=== PATIENT | female | born 1990 | race Caucasian/White ===

== ENCOUNTER → 2020-01-30 | Outpatient (REF) | payer OTHER ==
[2020-01-30 17:41] LABS: HEMATOCRIT 35.3 % (36.0-47.0); HEMOGLOBIN 11.7 g/dl (12.0-15.5); MEAN CORPUSCULAR HEMOGLOBIN 28.6 pg (27.0-33.0); MEAN CORPUSCULAR HGB CONC 33.1 g/dl (32.0-36.5); MEAN CORPUSCULAR VOLUME 86.3 fl (80.0-96.0); PLATELET COUNT, AUTOMATED 233 10^3/uL (150-450); RED BLOOD COUNT 4.09 10^6/uL (4.00-5.40); WHITE BLOOD COUNT 13.1 10^3/uL (4.0-10.0)
== END ==
LOC: M PLALAB 15:22
PROVIDERS: ATTEND Specialist
DX: Z34.83 Encounter for supervision of other normal pregnancy, third trimester (principal)

== ENCOUNTER → 2020-03-09 | Outpatient (REF) | payer OTHER ==
[~2020-03-09] MED LIST: ACET-683 PO; IBUP80TA PO; PEPC1TAB5 PO; PRENTAB9 PO
== END ==
LOC: M SFHCWAGY 16:57
PROVIDERS: ATTEND Specialist
DX: Z34.83 Encounter for supervision of other normal pregnancy, third trimester (principal)
CPT/HCPCS: 87081; G0463

== ENCOUNTER 2020-03-31 13:59 | Inpatient (IN) | payer OTHER ==
[2020-03-31] VITALS (22 sets, daily range): BP systolic 98–143; BP diastolic 53–88
[~2020-03-31] VITALS: Ht 162.6 cm; Wt 86.9 kg
[2020-03-31] MEDS ORDERED: PRENTAB9 PO (14:36)
[2020-03-31] MEDS ORDERED: PEPC1TAB5 PO (14:36)
[2020-03-31] MEDS ORDERED: miSOPROStol 50 MCG 1/2 TAB (S0191) SL SCH (14:45)
[2020-03-31 15:07] LABS: HEMATOCRIT 36.2 % (36.0-47.0); HEMOGLOBIN 11.6 g/dl (12.0-15.5); MEAN CORPUSCULAR HEMOGLOBIN 26.2 pg (27.0-33.0); MEAN CORPUSCULAR VOLUME 81.9 fl (80.0-96.0); PLATELET COUNT, AUTOMATED 215 10^3/uL (150-450); RED BLOOD COUNT 4.42 10^6/uL (4.00-5.40); WHITE BLOOD COUNT 11.4 10^3/uL (4.0-10.0)
[2020-03-31] MEDS ORDERED: OXYTOCIN DRIP 30 UNITS in IV 1 EA IV SCH (15:15)
--- NOTE | 2020-03-31 15:47 | HPE ---
DATE OF ADMISSION: 03/31/2020 A 29-year-old G2, P1 female at 39-2/7 weeks gestation by last menstrual period (LMP) consistent with an 11-week ultrasound, estimated date of confinement (EDC) 04/05/2020, presents for labor induction. She has irregular contractions that are mild. She denies bleeding. COURSE: The patient transferred into [facility] from outside the [facility] on 01/30/2020. The remainder of her care was normal. OBSTETRICAL HISTORY: February 2016, vaginal delivery of an 8-pound 6-ounce male . No complications. MEDICAL HISTORY: 1. Hypothyroidism. 2. Anxiety. SURGICAL HISTORY: Tonsillectomy. ALLERGIES: SULFA. SOCIAL HISTORY: The patient is . She lives at [place]. She denies cigarettes, alcohol, or drug use. FAMILY HISTORY: Noncontributory. PHYSICAL EXAMINATION: Blood pressure 124/74, pulse 84. She is in no apparent distress. HEAD AND NECK: Normal. LUNGS: Clear. HEART: Regular. ABDOMEN: Nontender, gravid. heart tone category 1. Contractions irregular, mild to moderate. Sterile vaginal exam: 4 cm, 80%, -2, posterior, soft, vertex. EXTREMITIES: Nontender. LABORATORY DATA: GBS negative. Blood type O positive. ASSESSMENT: A 29-year-old G2, P1 at 39-2/7 weeks gestation presents for labor induction. PLAN: Patient was admitted on 03/31/2020. Plan Pitocin for labor induction.
[2020-03-31] MEDS: LR 1,000 ML IV SCH (16:28)
[2020-03-31] MEDS ORDERED: FENTANYL 2MCG/ML ROPIVACAINE 0.2% IN 0.9% NACL 100ML IVBAG As Ordered ONE (19:09)
[2020-03-31] MEDS ORDERED: EPIDURAL/PCA KEYS XX PRN (20:45)
[2020-03-31] MEDS ORDERED: REFRIGERATOR IV KEYS XX PRN (20:45)
[2020-03-31] MEDS ORDERED: FENTANYL/ROPIVACAINE/NACL BAG 100 ML EPIDURAL SCH (20:45)
[2020-03-31] MEDS ORDERED: LACTATED RINGER'S 1000 ML IV PRN (20:45)
[2020-03-31] MEDS ORDERED: NALOXONE INJ 0.4MG/1ML VIAL (J2310 PER 1MG) IV PRN (20:45)
[2020-03-31] MEDS ORDERED: diphenhydrAMINE 50MG/ML VIAL (J1200) IV PRN (20:45)
[2020-03-31] MEDS ORDERED: ePHEDrine SULFATE 25 MG/5 ML(5MG/ML) SYRINGE IV PRN (20:45)
[2020-03-31] MEDS ORDERED: EPIDURAL COMMENT XX SCH (20:45)
[2020-03-31] MEDS ORDERED: ONDANSETRON 4MG/2ML VIAL IV PRN (20:45)
[2020-04-01] MEDS: LR 1,000 ML IV SCH (00:13)
[2020-04-01] MEDS ORDERED: DIBUCAINE 1% OINTMENT 30GM TOP PRN (00:30)
[2020-04-01] MEDS ORDERED: RHOGAM 300 MCG (1500 IU) INJ (J2790) IM SCH (00:30)
[2020-04-01] MEDS ORDERED: OXYTOCIN DRIP 30 UNITS in IV 1 EA IV ONE (00:30)
[2020-04-01] MEDS ORDERED: MEASLES,MUMPS,RUBELLA VACCINE INJ (MMR-II) (90707) SC SCH (00:30)
[2020-04-01] MEDS ORDERED: IBUPROFEN 600MG TAB PO PRN (00:30)
[2020-04-01] MEDS ORDERED: METHYLERGONOVINE MALEATE 0.2 MG TAB PO PRN (00:30)
[2020-04-01] MEDS ORDERED: DOCUSATE SODIUM 100 MG CAP PO PRN (00:30)
[2020-04-01] MEDS ORDERED: ONDANSETRON 4MG/2ML VIAL IV PRN (00:30)
[2020-04-01] MEDS ORDERED: ACETAMINOPHEN 500 MG TAB PO PRN (00:30)
[2020-04-01] MEDS ORDERED: ACETAMINOPHEN TAB 650MG DOSE (2X325MG) PO PRN (00:30)
[2020-04-01 01:45] VITALS: BP 112/72
[2020-04-01] MEDS: IBUPROFEN 800 MG TAB PO PRN ×2 (05:40→14:45)
[2020-04-01 06:00] VITALS: BP 119/73
[2020-04-01] MEDS: PRENATAL VITAMINS CHEWABLE TABLET PO SCH (08:37)
[2020-04-01 17:44] VITALS: BP 118/73
[2020-04-02 06:00] VITALS: BP 109/66
[2020-04-02] MEDS: PRENATAL VITAMINS CHEWABLE TABLET PO SCH (08:49)
[2020-04-02] MEDS ORDERED: ACET-683 PO (09:15)
[2020-04-02] MEDS ORDERED: IBUP80TA PO (09:15)
--- NOTE | 2020-04-10 15:54 | DN ---
DATE OF DELIVERY: 03/31/2020 PREDELIVERY DIAGNOSIS: Term , labor induction. POSTDELIVERY DIAGNOSIS: Delivered. PROCEDURE: Spontaneous vaginal delivery. PROPERTY CONTROLLER: Ministerio Gan MD ANESTHESIA: Epidural. ESTIMATED BLOOD LOSS: 300 mL. FINDINGS: 9 pound 15 ounce female infant. scores 8 and 8. DELIVERY SUMMARY: After a 20 minute second stage, the patient had spontaneous delivery of a 9 pound 15 ounce female infant, scores 8 and 8 under epidural anesthesia. There was no nuchal cord. The shoulders delivered with ease. The was handed to the mother. The cord was doubly clamped and cut. The placenta was delivered by manual extraction after 28 minutes. The patient received IV Pitocin after delivery of the placenta. A second-degree perineal laceration was repaired with 2-0 chromic in the usual fashion. Sponge and needle counts were correct.
== END 2020-04-02 11:00 | disposition home or self-care (01) | DRG 807 ==
LOC: M LDI 13:59 → M OBS 04-01 01:26
PROVIDERS: ADMIT Specialist; ATTEND Specialist
PROC: 10E0XZZ Delivery of Products of Conception, External Approach (ICD-10-PCS; principal; 2020-03-31)
PROC: 0KQM0ZZ Repair Perineum Muscle, Open Approach (ICD-10-PCS; 2020-03-31)
PROC: 3E033VJ Introduction of Other Hormone into Peripheral Vein, Percutaneous Approach (ICD-10-PCS; 2020-03-31)
DX: O99.284 Endocrine, nutritional and metabolic diseases complicating childbirth (principal); Z37.0 Single live birth; E03.9 Hypothyroidism, unspecified; Z3A.39 39 weeks gestation of pregnancy; O99.344 Other mental disorders complicating childbirth; F41.9 Anxiety disorder, unspecified; O70.1 Second degree perineal laceration during delivery

== ENCOUNTER → 2020-08-07 | Outpatient (CLI) | payer OTHER ==
[2020-08-07 13:27] LABS: BASO # 0.1 10^3/uL (0.0-0.2); BASO % 0.9 % (0.0-1.0); EOS # 0.2 10^3/uL (0.0-0.5); EOS % 2.3 % (0.0-3.0); HEMATOCRIT 40.9 % (36.0-47.0); HEMOGLOBIN 13.3 g/dl (12.0-15.5); LYMPH # 2.5 10^3/uL (1.5-5.0); LYMPH % 38.4 % (24.0-44.0); MEAN CORPUSCULAR HEMOGLOBIN 28.6 pg (27.0-33.0); MEAN CORPUSCULAR HGB CONC 32.5 g/dl (32.0-36.5); MONO # 0.5 10^3/uL (0.0-0.8); MONO % 7.8 % (0.0-5.0); NEUTROPHILS # 3.3 10^3/uL (1.5-8.5); NEUTROPHILS % 50.4 % (36.0-66.0); PLATELET COUNT, AUTOMATED 266 10^3/uL (150-450); RED BLOOD COUNT 4.65 10^6/uL (4.00-5.40); WHITE BLOOD COUNT 6.5 10^3/uL (4.0-10.0)
[2020-08-07 13:59] LABS: ALBUMIN 4.1 GM/DL (3.2-5.2); ALT/SGPT 43 U/L (12-78); BILIRUBIN,TOTAL 0.6 MG/DL (0.2-1.0); BLOOD UREA NITROGEN 13 MG/DL (7-18); CALCIUM LEVEL 9.3 MG/DL (8.5-10.1); CARBON DIOXIDE LEVEL 27 MEQ/L (21-32); CHLORIDE LEVEL 106 MEQ/L (98-107); CREATININE FOR GFR 0.83 MG/DL (0.55-1.30); GLOMERULAR FILTRATION RATE > 60.0 (>60); GLUCOSE, FASTING 75 MG/DL (70-100); POTASSIUM SERUM 4.5 MEQ/L (3.5-5.1); SODIUM LEVEL 140 MEQ/L (136-145); THYROID STIMULATING HORMONE 0.801 uIU/ML (0.358-3.740); TOTAL PROTEIN 7.4 GM/DL (6.4-8.2)
== END ==
LOC: M PLALAB 09:40
PROVIDERS: ATTEND Family Medicine
DX: L65.9 Nonscarring hair loss, unspecified (principal)

== ENCOUNTER → 2021-01-22 | Outpatient (REF) | payer OTHER ==
[2021-01-22 13:05] LABS: HEMATOCRIT 42.4 % (36.0-47.0); HEMOGLOBIN 13.7 g/dl (12.0-15.5); MEAN CORPUSCULAR HEMOGLOBIN 29.3 pg (27.0-33.0); MEAN CORPUSCULAR HGB CONC 32.3 g/dl (32.0-36.5); MEAN CORPUSCULAR VOLUME 90.8 fl (80.0-96.0); PLATELET COUNT, AUTOMATED 285 10^3/uL (150-450); RED BLOOD COUNT 4.67 10^6/uL (4.00-5.40); WHITE BLOOD COUNT 11.3 10^3/uL (4.0-10.0)
[2021-01-22 13:48] LABS: ALT/SGPT 23 U/L (12-78); BILIRUBIN,TOTAL 0.6 MG/DL (0.2-1.0); BLOOD UREA NITROGEN 18 MG/DL (7-18); CALCIUM LEVEL 9.3 MG/DL (8.5-10.1); CARBON DIOXIDE LEVEL 28 MEQ/L (21-32); CHLORIDE LEVEL 105 MEQ/L (98-107); CREATININE FOR GFR 0.59 MG/DL (0.55-1.30); FERRITIN 14 NG/ML (8-252); FREE T4 1.08 NG/DL (0.76-1.46); GLOMERULAR FILTRATION RATE > 60.0 (>60); GLUCOSE, FASTING 93 MG/DL (70-100); POTASSIUM SERUM 4.3 MEQ/L (3.5-5.1); SODIUM LEVEL 137 MEQ/L (136-145); THYROID STIMULATING HORMONE 0.789 uIU/ML (0.358-3.740); TOTAL PROTEIN 7.1 GM/DL (6.4-8.2)
== END ==
LOC: M PLALAB 10:50
PROVIDERS: ATTEND Advanced Practice Midwife
DX: Z01.419 Encounter for gynecological examination (general) (routine) without abnormal findings (principal)

== ENCOUNTER → 2021-04-04 | Outpatient (CLI) | payer OTHER ==
[2021-04-04 17:46] LABS: BASO # 0.1 10^3/uL (0.0-0.2); BASO % 0.8 % (0.0-1.0); EOS # 0.2 10^3/uL (0.0-0.5); EOS % 2.3 % (0.0-3.0); HEMATOCRIT 42.4 % (36.0-47.0); HEMOGLOBIN 13.9 g/dl (12.0-15.5); LYMPH # 4.2 10^3/uL (1.5-5.0); LYMPH % 44.1 % (24.0-44.0); MEAN CORPUSCULAR HEMOGLOBIN 29.7 pg (27.0-33.0); MEAN CORPUSCULAR HGB CONC 32.8 g/dl (32.0-36.5); MEAN CORPUSCULAR VOLUME 90.6 fl (80.0-96.0); MONO # 0.6 10^3/uL (0.0-0.8); MONO % 5.9 % (2.0-8.0); NEUTROPHILS # 4.4 10^3/uL (1.5-8.5); NEUTROPHILS % 46.7 % (36.0-66.0); PLATELET COUNT, AUTOMATED 308 10^3/uL (150-450); RED BLOOD COUNT 4.68 10^6/uL (4.00-5.40); WHITE BLOOD COUNT 9.4 10^3/uL (4.0-10.0)
[2021-04-04 18:01] LABS: ALBUMIN 4.1 GM/DL (3.2-5.2); ALT/SGPT 19 U/L (12-78); BILIRUBIN,TOTAL 0.4 MG/DL (0.2-1.0); BLOOD UREA NITROGEN 13 MG/DL (7-18); CALCIUM LEVEL 9.2 MG/DL (8.5-10.1); CARBON DIOXIDE LEVEL 28 MEQ/L (21-32); CHLORIDE LEVEL 105 MEQ/L (98-107); CREATININE FOR GFR 0.68 MG/DL (0.55-1.30); GLOMERULAR FILTRATION RATE > 60.0 (>60); GLUCOSE, FASTING 92 MG/DL (70-100); POTASSIUM SERUM 4.1 MEQ/L (3.5-5.1); SODIUM LEVEL 139 MEQ/L (136-145); THYROID STIMULATING HORMONE 0.591 uIU/ML (0.358-3.740); TOTAL PROTEIN 7.3 GM/DL (6.4-8.2)
== END ==
LOC: M PLALAB 14:54
PROVIDERS: ATTEND Family Medicine
DX: F41.9 Anxiety disorder, unspecified (principal)

== ENCOUNTER → 2021-11-29 | Outpatient (CLI) | payer OTHER ==
[2021-11-29 15:22] LABS: BASO # 0.1 10^3/uL (0.0-0.2); BASO % 0.9 % (0.0-1.0); EOS # 0.2 10^3/uL (0.0-0.5); EOS % 1.9 % (0.0-3.0); HEMATOCRIT 40.4 % (36.0-47.0); HEMOGLOBIN 13.5 g/dl (12.0-15.5); LYMPH # 3.4 10^3/uL (1.5-5.0); LYMPH % 39.7 % (24.0-44.0); MEAN CORPUSCULAR HEMOGLOBIN 29.3 pg (27.0-33.0); MEAN CORPUSCULAR HGB CONC 33.4 g/dl (32.0-36.5); MEAN CORPUSCULAR VOLUME 87.6 fl (80.0-96.0); MONO # 0.6 10^3/uL (0.0-0.8); MONO % 6.4 % (2.0-8.0); NEUTROPHILS # 4.4 10^3/uL (1.5-8.5); PLATELET COUNT, AUTOMATED 298 10^3/uL (150-450); RED BLOOD COUNT 4.61 10^6/uL (4.00-5.40); WHITE BLOOD COUNT 8.6 10^3/uL (4.0-10.0)
[2021-11-29 16:00] LABS: BLOOD UREA NITROGEN 15 MG/DL (7-18); CALCIUM LEVEL 9.6 MG/DL (8.5-10.1); CARBON DIOXIDE LEVEL 29 MEQ/L (21-32); CHLORIDE LEVEL 107 MEQ/L (98-107); CREATININE FOR GFR 0.77 MG/DL (0.55-1.30); FREE T4 1.12 NG/DL (0.76-1.46); GLOMERULAR FILTRATION RATE > 60.0 (>60); GLUCOSE, FASTING 102 MG/DL (70-100); POTASSIUM SERUM 4.2 MEQ/L (3.5-5.1); SODIUM LEVEL 140 MEQ/L (136-145); THYROID STIMULATING HORMONE 0.477 uIU/ML (0.358-3.740); TOTAL 25(OH) VITAMIN D 20.3 NG/ML (30.0-100.0)
== END ==
LOC: M PLALAB 13:55
PROVIDERS: ATTEND Nurse Practitioner Family
DX: F41.9 Anxiety disorder, unspecified (principal)
CPT/HCPCS: 36415; 80048; 82306; 84439; 84443; 85025; G0463

== ENCOUNTER → 2021-12-19 | Outpatient (CLI) | payer OTHER | LOC: M WHC 09:36 | PROVIDERS: ATTEND Advanced Practice Midwife | DX: N92.1 Excessive and frequent menstruation with irregular cycle (principal) ==

== ENCOUNTER → 2022-01-22 | Outpatient (REF) | payer OTHER | LOC: M PLALAB 10:24 | PROVIDERS: ATTEND Advanced Practice Midwife | DX: Z12.4 Encounter for screening for malignant neoplasm of cervix (principal) ==

== ENCOUNTER → 2022-01-22 | Outpatient (CLI) | payer OTHER ==
[2022-01-22 15:02] LABS: HEMOGLOBIN A1c 5.2 %
== END ==
LOC: M PLALAB 11:05
PROVIDERS: ATTEND Advanced Practice Midwife
DX: Z12.4 Encounter for screening for malignant neoplasm of cervix (principal); Z86.32 Personal history of gestational diabetes